=== PATIENT | female | born 1990 | race Caucasian/White ===

== ENCOUNTER 2018-10-06 03:29 | Emergency (ER) | payer SELFPAY ==
[~2018-10-06] VITALS: Ht 170.2 cm; Wt 81.2 kg
[2018-10-06] MEDS ORDERED: PRED20TA PO (03:43)
[2018-10-06] MEDS ORDERED: CHLO15MO2 PO (03:43)
--- NOTE | 2018-10-06 03:44 | PHYS DOC ---
Past Medical History Additional Past Medical Histor: Transgender Additional Past Surgical Histo: double mastectomy Smoking: Cigarettes Alcohol Use: Occasionally Drug Use: Methamphetamine Adult General Chief Complaint Chief Complaint: DENTAL PROBLEM HPI HPI 28-year-old transgender female who goes by "El" presents with report of right maxillary molar pain and discomfort for the last few days. Patient does report previously presenting to urgent care and being started on amoxicillin. Patient reports history of poor dentition. Reports history of prior drug abuse. Patient reports concern that area has now become more swollen. Denies any fever or chills. Denies trauma. Review of Systems Review of Systems Constitutional: Denies fever or chills [] HENT: Reports dentalgia and poor dentition Integument: Denies rash or skin lesions [] Neurologic: Denies headache, focal weakness or sensory changes [] Complete systems were reviewed and found to be within normal limits, except as documented in this note. Current Medications Current Medications Current Medications Medications (Trade) Dose Ordered Sig/Rhett Start Time Stop Time Status Last Admin Dose Admin Dexamethasone (Decadron) 10 mg 1X ONCE 10/06/18 03:45 10/06/18 03:46 UNV Ibuprofen (Motrin) 600 mg 1X ONCE 10/06/18 03:45 10/06/18 03:46 UNV Physical Exam Physical Exam Constitutional: Well developed, well nourished, no acute distress, non-toxic appearance, anxious HENT: Normocephalic, atraumatic, poor dentition throughout, significant dental caries to right maxillary 2nd molar down to dental root, gingival swelling noted , no drainable abscess noted Eyes: Conjunctiva normal, no discharge. [] Neck: Normal range of motion, supple, Lungs & Thorax: No respiratory distress, no accessory muscle use Skin: Warm, dry Extremities: No deformity, ROM intact Neurologic: Alert and oriented X 3, no focal deficits noted. [] Psychologic: Affect anxious, judgement normal EKG EKG [] Radiology/Procedures Radiology/Procedures [] Course & Med Decision Making Course & Med Decision Making Patient presents with history of present illness and physical exam consistent for severe dental leah to right second molar. Patient previously started on empiric antibiotics and was advised to continue. Symptomatic treatment provided with oral steroid and ibuprofen. Patient stable for discharge with outpatient follow-up with PCP/dentist. Dental clinic resources provided. Discussed findings and plan with patient, who acknowledges understanding and agreement. Damir Disclaimer Dragon Disclaimer This electronic medical record was generated, in whole or in part, using a voice recognition dictation system. Departure Departure Impression: Primary Impression: Dental caries Additional Impression: Dentalgia Disposition: HOME, SELF-CARE Condition: STABLE Referrals: NO PCP (PCP) Patient Instructions: Dental Caries-Brief, Toothache-Brief Additional Instructions: Continue recently prescribed antibiotics until gone. Use over the counter Ibuprofen and Tylenol for pain or discomfort. Scripts Prednisone (PREDNISONE) 20 Mg Tablet 2 TAB PO DAILY, #8 TAB Take next dose tomorrow, Monday10/07/18 Prov: VIVIEN SHAH DO 10/06/18 Chlorhexidine Gluconate (PERIDEX) 15 Ml Mouthwash 15 ML PO BID, #946 ML Prov: VIVIEN SHAH DO 10/06/18 Problem Qualifiers VIVIEN SHAH DO Oct 06, 2018 03:44
[2018-10-06 03:50] VITALS: BP 146/80
[2018-10-06] MEDS ORDERED: DEXAMETHASONE 4 MG TABLET PO ONE (04:30)
[2018-10-06] MEDS ORDERED: IBUPROFEN 200 MG TABLET. PO ONE (04:30)
== END 2018-10-06 04:15 | disposition home or self-care (01) ==
LOC: ER 03:29
DX: K02.9 Dental caries, unspecified (principal); F17.210 Nicotine dependence, cigarettes, uncomplicated; F15.20 Other stimulant dependence, uncomplicated; Z90.13 Acquired absence of bilateral breasts and nipples
CPT/HCPCS: 99283; J8540

== ENCOUNTER 2019-08-18 02:02 | Emergency (ER) | payer OTHER ==
[~2019-08-18] VITALS: Ht 170.2 cm; Wt 85.0 kg
[~2019-08-18 02:02] MED LIST: CHLO15MO2 PO; PRED20TA PO
[2019-08-18 02:34] VITALS: BP 153/90
[2019-08-18] MEDS ORDERED: PENI500T PO (03:13)
[2019-08-18] MEDS ORDERED: IBUP-1060 PO (03:13)
--- NOTE | 2019-08-18 03:13 | PHYS DOC ---
Past Medical History Past Medical History: Other Additional Past Medical Histor: Transgender; (not currently on hormone therapy 10/12) Past Surgical History: Other Additional Past Surgical Histo: Double Masectomy Smoking Status: Current Every Day Smoker Alcohol Use: Occasionally Drug Use: Methamphetamine Adult General Chief Complaint Chief Complaint: ABSCESS HPI HPI Patient is a 29 year old transgender with a male phenotype who presents with complaint of abscess. Patient states he had left lower jaw and facial pain and edema that started 2 weeks ago and was seen at urgent care and treated with Augmentin with improvement of condition but after finishing the medication edema and pain returned again days. Patient denies fever and chills, dysphagia, nausea and vomiting. Patient did not follow-up with dentist. Review of Systems Review of Systems Constitutional: Denies fever or chills [] Eyes: Denies change in visual acuity, redness, or eye pain [] HENT: Denies nasal congestion or sore throat , reports dental pain Respiratory: Denies cough or shortness of breath [] Cardiovascular: No additional information not addressed in HPI [] GI: Denies abdominal pain, nausea, vomiting, bloody stools or diarrhea [] : Denies dysuria or hematuria [] Musculoskeletal: Denies back pain or joint pain [] Integument: Denies rash or skin lesions [] Neurologic: Denies headache, focal weakness or sensory changes [] Endocrine: Denies polyuria or polydipsia [] All other systems were reviewed and found to be within normal limits, except as documented in this note. Allergies Allergies Allergies Coded Allergies Type Severity Reaction Last Updated Verified No Known Drug Allergies 10/06/18 No Physical Exam Physical Exam Constitutional: Well developed, well nourished, mild distress, non-toxic appeara nce. [] HENT: Normocephalic, atraumatic, left lower jaw and facial edema without sign of abscess, tooth# 19 with tenderness and large cavity with almost root remaining , bilateral external ears normal, oropharynx moist, no oral exudates, nose normal. [] Eyes: PERRLA, EOMI, conjunctiva normal, no discharge. [] Neck: Normal range of motion, no tenderness, supple, no stridor. [] Cardiovascular:Heart rate regular rhythm, no murmur [] Lungs & Thorax: Bilateral breath sounds clear to auscultation [] Neurologic: Alert and oriented X 3, normal motor function, normal sensory function, no focal deficits noted. [] Psychologic: Affect anxious, judgement normal, mood normal. [] Current Patient Data Vital Signs Vital Signs Date Time Temp Pulse Resp B/P (MAP) Pulse Ox O2 Delivery O2 Flow Rate FiO2 08/18/19 02:34 97.7 115 14 153/90 (111) 98 Room Air 97.7 EKG EKG [] Radiology/Procedures Radiology/Procedures [] Course & Med Decision Making Course & Med Decision Making Evaluation of patient in ER showed 29-year-old male patient with history: Dental abscess without following the dentist. Patient didn't want to have pain medication in ER. Prescription for penicillin and ibuprofen was given patient was advised to stop smoking cigarettes and follow up with her dentist. Dragon Disclaimer Dragon Disclaimer This electronic medical record was generated, in whole or in part, using a voice recognition dictation system. Departure Departure Impression: Primary Impression: Dental abscess Disposition: HOME, SELF-CARE (at 0311) Condition: STABLE Referrals: MARITZA SOARES MD (PCP) Patient Instructions: Dental Abscess Additional Instructions: Drink plenty of liquids Follow-up with your dentist in 3-5 days Return to ER if not getting better Scripts Ibuprofen (IBUPROFEN) 800 Mg Tablet 800 MG PO PRN Q8HRS PRN for INFLAMMATION, #20 TAB Prov: LASHAY GOMEZ MD 08/18/19 Penicillin V Potassium (PENICILLIN V POTASSIUM) 500 Mg Tablet 2 TAB PO Q12HR, #40 TAB Prov: LASHAY GOMEZ MD 08/18/19 LASHAY GOMEZ MD Aug 18, 2019 03:13
== END 2019-08-18 03:46 | disposition home or self-care (01) ==
LOC: EDSEX 02:02 → ER 02:02
DX: K04.7 Periapical abscess without sinus (principal); R51 Headache; R68.84 Jaw pain; F15.90 Other stimulant use, unspecified, uncomplicated; F17.200 Nicotine dependence, unspecified, uncomplicated; Z98.890 Other specified postprocedural states
CPT/HCPCS: 99283